=== PATIENT | female | born 1980 | race African-American/Black ===

== ENCOUNTER 2019-11-15 15:39 | Emergency (ER) | payer OTHER ==
[~2019-11-15] VITALS: Ht 170.2 cm; Wt 98.9 kg
[2019-11-15 15:50] LABS: ABSOLUTE NEUTROPHILS 2.8 thou/uL (1.4-8.2); EOSINOPHILS 1.3 % (0.0-3.0); HEMATOCRIT 46.9 % (37.0-47.0); HEMOGLOBIN 15.5 gm/dL (12.0-15.0); LYMPHOCYTES 52.7 % (24.0-44.0); MCH 26.6 pg (26.0-34.0); MCV 80.5 fL (80.0-100.0); MONOCYTES 7.3 % (1.0-8.0); PLATELET COUNT 301 thou/uL (150-400); POLYS 37.7 % (36.0-66.0); RBC 5.83 mil/uL (4.20-5.00); RDW 15.1 % (10.5-14.5); WBC 7.4 thou/uL (4.0-11.0)
[2019-11-15 15:58] LABS: ANION GAP 9 mmol/L (7-16); BUN 9 mg/dL (7-18); CALCIUM 8.8 mg/dL (8.5-10.1); CHLORIDE 100 mmol/L (98-107); CO2 25 mmol/L (21-32); CREATININE 1.1 mg/dL (0.6-1.0); GLUCOSE 123 mg/dL (74-106); POTASSIUM 3.5 mmol/L (3.5-5.1); SODIUM 134 mmol/L (136-145)
[2019-11-15 16:09] LABS: ALBUMIN 3.4 g/dL (3.4-5.0); SGOT 25 U/L (15-37); SGPT 51 U/L (30-65); TOTAL BILIRUBIN 0.2 mg/dL (0.2-1.0); TOTAL PROTEIN 7.5 g/dL (6.4-8.2); TROPONIN-I <0.06 ng/mL (<0.06)
[2019-11-15] MEDS ORDERED: NORETHINDRONE AC5 M2 PO (16:25)
[2019-11-15] MEDS ORDERED: FISH OIL 1,0001 EAC9 PO (16:25)
[2019-11-15] MEDS ORDERED: SUPER THERAVIT1 EACH PO (16:25)
[2019-11-15 17:07] LABS: URINE BILIRUBIN NEGATIVE (Negative); URINE BLOOD 3+ (Negative); URINE CLARITY CLOUDY; URINE COLOR YELLOW; URINE GLUCOSE-RANDOM* NEGATIVE (Negative); URINE KETONES TRACE (Negative); URINE LEUKOCYTES-REFLEX TRACE (Negative); URINE NITRITE-REFLEX NEGATIVE (Negative); URINE PROTEIN (DIPSTICK) 2+ (Negative); URINE SPECIFIC GRAVITY >= 1.030 (1.005-1.035)
[2019-11-15 17:14] LABS: CASTS None Seen /LPF (None Seen); CRYSTALS None Seen /LPF (None Seen); SQUAMOUS 0-3 Few /LPF (0-3); URINE RBC >20 Many /HPF (0-2)
[2019-11-15 17:15] LABS: BACTERIA-REFLEX 1-9 Few /HPF (None Seen); URINE WBC-REFLEX 0-5 Rare /HPF (0-5)
[2019-11-15] MEDS ORDERED: NORCO 5-325 TA1 EAC1 PO (18:20)
[2019-11-15] MEDS ORDERED: BENTYL 20 MG TA20 M1 PO (18:20)
[2019-11-15] MEDS ORDERED: ZOFRAN ODT4 MG PO (18:20)
[2019-11-15 18:21] VITALS: BP 157/101
--- NOTE | 2019-11-16 09:44 | EKG ---
[facility] [place] [address] ELECTROCARDIOGRAM REPORT Name: JOSIE KEY Room #: DEP [facility]#: [id number] Admission: 11/15/19 Attend Phys: Discharge: 11/15/19 Date of : 76 Report #: [id number] THIS REPORT FOR: cc: ROSALIND - [place] family physician/PCP ROSALIND - [place] family physician/PCP Mark Alvarez MD [facility] THIS REPORT FOR: //name// [facility] ED Test Date: 2019-11-15 Test Time: 15:38:46 Pat Name: JOSIE KEY Department: Room: Gender: [employer] Manager: : 1980 Requested By: Naty Gupta Order Number: [id number] MD: Mark Alvarez Measurements Intervals [place] Rate: 97 P: 52 VA: 162 QRS: 46 QRSD: 82 T: -21 QT: 344 QTc: 437 Interpretive Statements Sinus rhythm Borderline T abnormalities, inferior leads No previous ECG available for comparison Electronically Signed On 11-16-2019 9:44:01 CDT by Mark Alvarez [email or web address] <ELECTRONICALLY SIGNED> By: Mark Alvarez MD, [facility] 11/16/19 0944 [id number] 37 Mark Alvarez MD, [facility] /EPI
== END 2019-11-15 18:21 | disposition home or self-care (01) ==
LOC: ER 15:39
PROVIDERS: Emergency Medicine
DX: R07.89 Other chest pain (principal); R10.84 Generalized abdominal pain; Z88.0 Allergy status to penicillin; Z79.899 Other long term (current) drug therapy